=== PATIENT | male | born 1950 | race Caucasian/White ===

== ENCOUNTER → 2020-02-11 | Outpatient (CLI) | payer MEDICARE | END | disposition home or self-care (01) | LOC: CLISVCS 13:47 | PROVIDERS: ATTEND Anesthesiology | DX: Z20.828 Contact with and (suspected) exposure to other viral communicable diseases (principal) | CPT/HCPCS: 87635 ==

== ENCOUNTER 2020-02-17 06:59 | Day surgery (SDC) | payer MEDICARE ==
[~2020-02-17] VITALS: Ht 180.3 cm; Wt 87.6 kg
[2020-02-17] MEDS ORDERED: TRAZ150T62 PO (08:44)
[2020-02-17] MEDS ORDERED: BUPR1TAB44 SL (08:44)
[2020-02-17] MEDS ORDERED: GABA800T5 PO (08:44)
[2020-02-17] MEDS ORDERED: CHLORHEXIDINE 15 ML UDC MM ONE (09:00)
[2020-02-17] MEDS ORDERED: LACTATED RINGERS 1,000 ML IV SCH (09:00)
[2020-02-17] MEDS ORDERED: MIDAZOLAM 1 MG/ML, 2ML ONE (09:16)
[2020-02-17] MEDS ORDERED: FENTANYL PF 250 MCG/5ML ONE (09:17)
[2020-02-17 09:20] VITALS: BP 159/82
[2020-02-17] MEDS ORDERED: BUPIVACAINE/PF 0.5% ONE (10:27)
[2020-02-17] MEDS ORDERED: BACITRACIN 50,000 UNIT ONE (10:28)
[2020-02-17] MEDS ORDERED: methylPREDNISolone SOD SUCC 125 MG/2 ML ONE (10:28)
[2020-02-17] MEDS ORDERED: BUPIVACAINE/PF 0.25% ONE (10:28)
[2020-02-17] MEDS ORDERED: CEFAZOLIN 1,000 MG ONE (10:52)
[2020-02-17] MEDS ORDERED: KETOROLAC 30 MG/1 ML ONE (10:52)
[2020-02-17] MEDS ORDERED: PROPOFOL 10 MG/ML, 20ML ONE (10:52)
[2020-02-17] MEDS ORDERED: SUCCINYLCHOLINE 20 MG/ML, 10ML ONE (10:52)
[2020-02-17] MEDS ORDERED: DEXAMETHASONE 4 MG/ML, 1ML ONE (10:52)
[2020-02-17] MEDS ORDERED: SUGAMMADEX 200 MG/2 ML IVPush ONE (10:52)
[2020-02-17] MEDS ORDERED: ONDANSETRON 2MG/ML, 2ML ONE (10:52)
[2020-02-17] MEDS ORDERED: EPINEPHRINE 1 MG/ML, 1ML INFIL ONE (11:25)
[2020-02-17] MEDS ORDERED: PROMETHAZINE 25 MG/ML, 1ML IV PRN (12:00)
[2020-02-17] MEDS ORDERED: LABETALOL 5MG/ML, 20ML IV PRN (12:00)
[2020-02-17] MEDS ORDERED: KETOROLAC 30 MG/1 ML IV PRN (12:00)
[2020-02-17] MEDS ORDERED: ALBUTEROL SULFATE 2.5 MG/3 ML NPPB PRN (12:00)
[2020-02-17] MEDS ORDERED: ONDANSETRON 2MG/ML, 2ML IVPush PRN (12:00)
[2020-02-17] MEDS ORDERED: DIAZEPAM 5 MG/ML, 2ML IV PRN ×2 (12:00)
[2020-02-17] MEDS ORDERED: METOCLOPRAMIDE 5 MG/ML, 2ML IV PRN (12:00)
[2020-02-17] MEDS ORDERED: MEPERIDINE/PF 25MG/0.5ML IVPush PRN (12:00)
[2020-02-17] MEDS ORDERED: hydrALAzine 20 MG/ML, 1ML IV PRN (12:00)
[2020-02-17] MEDS ORDERED: TIZA2TAB4 PO (12:54)
[2020-02-17] MEDS ORDERED: OXYC-302 PO (12:54)
[2020-02-17] MEDS ORDERED: FENTANYL PF 100 MCG/2ML ONE (13:55)
[2020-02-17] MEDS ORDERED: ACETAMINOPHEN 650 MG/20.3 ML UDC ONE (13:55)
[2020-02-17] MEDS ORDERED: OXYcodone 5 MG/5 ML ORAL.SOL UDC ONE ×2 (13:56→14:50)
[2020-02-17] MEDS: FENTANYL PF 100 MCG/2ML IV PRN ×4 (13:59→14:35)
[2020-02-17] MEDS: OXYcodone 5 MG/5 ML ORAL.SOL UDC PO PRN ×2 (13:59→14:51)
[2020-02-17] MEDS ORDERED: ACETAMINOPHEN 650 MG/20.3 ML UDC PO PRN (14:30)
[2020-02-17] MEDS ORDERED: HYDROmorphone 1 MG/ML, 1ML INJ ONE (14:50)
[2020-02-17] MEDS: HYDROmorphone 1 MG/ML, 1ML INJ IV PRN ×3 (14:55→16:49)
== END 2020-02-17 18:15 | disposition home or self-care (01) ==
LOC: OUT 06:59
PROVIDERS: ATTEND Neurological Surgery
DX: M48.062 Spinal stenosis, lumbar region with neurogenic claudication (principal); M51.16 Intervertebral disc disorders with radiculopathy, lumbar region; Z79.899 Other long term (current) drug therapy; Z98.1 Arthrodesis status; Z98.890 Other specified postprocedural states
CPT/HCPCS: 63047; 72100; J0171; J0330; J0690; J1100; J1170; J1885; J2250; J2405; J2704; J3010; J7120; J2930

== ENCOUNTER 2020-06-12 14:49 | Outpatient (CLI) | payer MEDICARE ==
[~2020-06-12 14:49] MED LIST: BUPR1TAB44 SL; GABA800T5 PO; OXYC1TAB14 PO; TIZA-106 PO; TRAZ150T62 PO
[2020-06-12] MEDS ORDERED: BUPR1FIL3 SL (15:23)
[2020-06-12 15:58] LABS: MICROSCOPIC NOT IND
[2020-06-12 16:03] LABS: BASOPHILS % (AUTO) 1 % (0-1); EOSINOPHILS % (AUTO) 5 % (1-7); LYMPHOCYTES % (AUTO) 23 % (22-44); MEAN CORPUSCULAR HEMOGLOBIN 29.1 pg (27.5-34.5); MEAN CORPUSCULAR HGB CONC 33.8 g/dL (33.2-36.2); MEAN PLATELET VOLUME 7.7 fL (7.4-10.4); MONOCYTES % (AUTO) 8 % (2-9); NEUTROPHILS % (AUTO) 63 % (42-75); PLATELET COUNT 197 x10^3/uL (130-400); RED BLOOD COUNT 5.06 x10^6/uL (4.38-5.82); RED CELL DISTRIBUTION WIDTH 13.9 % (9.4-14.8)
[2020-06-12 16:05] LABS: MD NO
[2020-06-12 16:06] LABS: CALCIUM 9.1 mg/dL (8.5-10.1); CHLORIDE 106 mmol/L (98-107)
[2020-06-12 16:07] LABS: CREATININE 1.17 mg/dL (0.7-1.3)
[2020-06-12 16:08] LABS: INTERNATIONAL NORMALIZED RATIO 1.04 (0.93-1.1); PROTHROMBIN TIME 11.1 Seconds (9.6-11.5)
[2020-06-12 16:15] LABS: ANION GAP 4 mmol/L (5-15)
[2020-06-17] MEDS ORDERED: DILAUDID PO (08:27)
== END 2020-06-12 23:59 | disposition home or self-care (01) ==
LOC: STAR 14:49
PROVIDERS: ATTEND Neurological Surgery
DX: Z01.812 Encounter for preprocedural laboratory examination (principal); Z20.822 Contact with and (suspected) exposure to COVID-19; M48.061 Spinal stenosis, lumbar region without neurogenic claudication
CPT/HCPCS: 36415; 71046; 80048; 81003; 85025; 85610; 85730; 93005; U0003